=== PATIENT | female | born 1965 | race Caucasian/White ===

== ENCOUNTER 2016-08-29 19:23 | Emergency (ER) | payer OTHER ==
[~2016-08-29] VITALS: Ht 162.6 cm; Wt 70.0 kg
[2016-08-29 19:37] VITALS: BP 145/85; PULSE 71; RESP 18; TEMP 98.4; O2SAT 95
[2016-08-29] MEDS ORDERED: CLON0.5T PO (19:46)
[2016-08-29] MEDS ORDERED: SERT25TA83 PO (19:46)
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
[2016-08-29 20:30] VITALS: BP 147/73; PULSE 75; RESP 18; O2SAT 100
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
[2016-08-29] MEDS ORDERED: IBUP-232 PO (21:05)
[2016-08-29] MEDS ORDERED: KETOROLAC TROMETHAMINE 60 MG/2 ML (IM) VIAL IM ONE (21:15)
[2016-08-29 21:45] VITALS: BP 140/70; PULSE 75; RESP 18; O2SAT 99
== END 2016-08-29 21:45 | disposition home or self-care (01) ==
LOC: PHED 19:23
DX: S20.219A Contusion of unspecified front wall of thorax, initial encounter (principal); V43.52XA Car driver injured in collision with other type car in traffic accident, initial encounter; Y92.488 Other paved roadways as the place of occurrence of the external cause; Y93.9 Activity, unspecified
CPT/HCPCS: 71020; 96372; 99284; J1885